=== PATIENT | female | born 2000 | race Caucasian/White ===

== ENCOUNTER 2018-05-26 10:50 | Outpatient (CLI) | payer MEDICAID ==
--- NOTE | 2018-05-26 12:37 | ULT ---
LIMITED SONOGRAM RIGHT BREAST: HISTORY: Right breast lump. FINDINGS: Sonographic evaluation at the anterior 11 o'clock position of the right breast, in the region of palp able concern shows dense fibroglandular disease. Within the deep layers of the dermis, superficial t o the breast tissue, a well circumscribed, oval, hypoechoic lesion shows posterior acoustic enhanceme nt and measures up to 0.5 cm in diameter. No suspicious shadowing. IMPRESSION: 1. Small, complex cyst, possibly sebaceous, within the deep layers of the skin. No evidence of jo st mass. 2. BI-RADS category 2-Benign findings. POS: [facility]
== END 2018-05-26 10:51 | disposition home or self-care (01) ==
LOC: BICULT 10:50
PROVIDERS: ATTEND Nurse Practitioner Family
DX: N63.10 Unspecified lump in the right breast, unspecified quadrant (principal); N60.01 Solitary cyst of right breast

== ENCOUNTER 2018-11-02 22:39 | Emergency (ER) | payer MEDICAID, SELFPAY ==
[2018-11-02 23:22] LABS: #Basophils 0.1 thou/uL (0.0-0.2); #Eosinphils 0.2 thou/uL (0.0-0.7); #Lymphocytes 2.9 thou/uL (1.20-3.40); #Monocytes 0.6 thou/uL (0.11-0.59); #Neutrophils 6.6 thou/uL (1.40-6.50); %Eosinophils 1.9 % (0.0-10.0); %Lymphocytes 27.8 % (28.0-48.0); %Neutrophils 63.3 % (31.0-61.0); Hemoglobin 12.5 g/dL (12.0-16.0); Mean Corpuscular HGB CONC 32.7 g/dL (32.0-36.0); Mean Corpuscular Hemoglobin 28.9 pg (25.0-35.0); Mean Corpuscular Volume 88.4 fL (78.0-98.0); Mean Platelet Volume 8.9 fL (7.4-10.4); Platelet Count 256 thou/uL (130-400); RBC Distribution Width 11.6 % (11.5-14.5); Red Blood Cell (RBC) Count 4.31 mill/uL (4.00-5.20); White Blood Cell (WBC) Count 10.5 thou/uL (4.8-10.8)
[2018-11-02 23:39] LABS: Bilirubin Small (Negative); Blood, Urine Negative (Negative); Clarity TURBID (Clear); Glucose, Urine (Dipstick) Negative (Negative); Leukocyte Trace (Negative); Nitrite Negative (Negative); Protein, Urine (Dipstick) Trace mg/dL (Neg-Trace); pH, Urine 5.5 (5.0-9.0)
[2018-11-02 23:46] LABS: Pathc Cast-AUWi Flag 4.35 (0-2.49)
[2018-11-02 23:47] LABS: Pregnancy Test - Urine (BHCG) Negative (Negative); Pregu Control Background? CLEAR/WHITE (CLR/WHITE); Pregu Control Bar Appear? YES (CONTROL BAR)
[2018-11-02 23:47] LABS: ALT (SGPT) 10 U/L (8-55); AST (SGOT) 12 U/L (5-34); Albumin 4.7 g/dL (3.5-5.0); Alkaline Phosphatase 49 U/L (40-150); Anion Gap 13 mmol/L (10-20); BUN (Urea Nitrogen) 12 mg/dL (7.0-18.7); Bilirubin, Total 0.7 mg/dL (0.2-1.2); Calc. Creatinine Clearance 0 mL/min (70-130); Calcium 9.6 mg/dL (7.8-10.44); Carbon Dioxide 27 mmol/L (22-29); Chloride 103 mmol/L (98-107); Estimated GFR-MDRD Greater than 90; Globulin 2.8 g/dL (2.4-3.5); Glucose 89 mg/dL (70-105); Potassium 3.7 mmol/L (3.5-5.1); Protein, Total 7.5 g/dL (6.0-8.3); Sodium 139 mmol/L (136-145)
[2018-11-02 23:50] LABS: Bacteria/HPF None Seen HPF (None Seen); RBC/HPF None Seen HPF (0-3); Renal Epithelial None Seen HPF (0-3); Squamous Epithelial 0-3 HPF (0-3); Transitional Epithelial NONE SEEN HPF (0-3); WBC/HPF 0-3 HPF (0-3)
[2018-11-02 23:51] LABS: Hyaline Casts/LPF NONE SEEN LPF (0-3 Hyaline); Other Casts/LPF None Seen LPF (0-3 Hyaline)
--- NOTE | 2018-11-03 08:59 | ULT ---
PRELIMINARY REPORT/[facility]/EMERGENTY AFTER-HOURS PROCEDURE US Pelvis Complete, Transabdominal and US Duplex Artery or Vein, Ovaries, Limited EXAM DATE/TIME: 11/03/2018 12:59 AM CLINICAL HISTORY: 18 years old, female; Pain and signs and symptoms; Patient HX: Llq pain x 1 wk, nausea TECHNIQUE: Imaging protocol: Real-time transabdominal pelvic ultrasound with image documentation. Real-time dupl ex ultrasound scan of the arterial or venous flow of the ovaries with B-mode, color Doppler flow and spectral waveform analysis. Complete Pelvis, Limited Duplex. COMPARISON: No relevant prior studies available. FINDINGS: Uterus/cervix: Uterus measures 6.7 x 3.3 x 5.0 cm. Endometrial thickness measures 8 mm. Right adnexa: RIGHT ovary measures 3.2 x 2.0 x 2.4 cm. Normal RIGHT ovarian venous waveform. Arterial waveform is less well demonstrated but probably normal. No evidence of ovarian torsion. Left adnexa: LEFT ovary measures 5.0 x 4.5 x 4.9 cm and contains a 3 cm probably hemorrhagic cyst. No rmal arterial and venous waveforms. No ovarian torsion. Free fluid: None. Bladder: Normal. IMPRESSION: 1. 3 cm LEFT ovarian probably hemorrhagic cyst. 2. No evidence of ovarian torsion on either side. Thank you for allowing us to participate in the care of your patient. Dictated and Authenticated by: Jean-Paul Claros MD 11/03/2018 1:55 AM Central Time ([place] & [place]) FINAL REPORT PELVIC SONOGRAM TRANSABDOMINAL IMAGING WITH DUPLEX EVALUATION: Date: 11-03-18 Performed on emergency basis at 0100 hours. History: Pelvic pain. FINDINGS: I agree with the preliminary report by Dr. Claros from [facility]. Complex 3 cm left ovarian c yst, likely hemorrhagic. Good color and spectral doppler flow within each ovary. Code QA POS: [facility]
== END 2018-11-03 02:34 | disposition home or self-care (01) ==
LOC: ERS 22:39
DX: N83.202 Unspecified ovarian cyst, left side (principal); F90.9 Attention-deficit hyperactivity disorder, unspecified type; F17.210 Nicotine dependence, cigarettes, uncomplicated
CPT/HCPCS: 36415; 76856; 80053; 81003; 81015; 81025; 85025; 87480; 87491; 87510; 87591; 87660; 93976

== ENCOUNTER 2025-02-17 20:16 | Emergency (ER) | payer SELFPAY ==
[2025-02-17] MEDS ORDERED: Ketorolac Tromethamine 30 MG (1 mL) VIAL ONE (21:33)
[2025-02-17] MEDS ORDERED: HYDROcodone/Acetaminophen 5/325 mg Tablet ONE (21:58)
== END 2025-02-17 22:03 | disposition home or self-care (01) ==
LOC: ERS 20:16
DX: K08.89 Other specified disorders of teeth and supporting structures (principal); Z87.891 Personal history of nicotine dependence
CPT/HCPCS: 96372; 99282; J1885